=== PATIENT | male | born 1980 | race Caucasian/White ===

== ENCOUNTER 2017-01-31 15:37 | Emergency (ER) | payer SELFPAY ==
[~2017-01-31] VITALS: Ht 180.3 cm; Wt 74.4 kg
[2017-01-31 16:17] VITALS: BP 141/96
[2017-01-31] MEDS ORDERED: LIDOCAINE 1% 500 MG/50 ML VIAL INJ ONE (16:50)
--- NOTE | 2017-01-31 17:10 | NUR ---
PATIENT PRESENTS TO ED WITHC/O LEFT HAND INJURY x TODAY @ 1400. PT STATES HE WAS WORKING ON HIS CAR AND THE RADIATOR DROPPED IN HIS LT HANDS. DENIES N/V/D; SKIN IS PINK/WARM/DRY; AAOX4 WITH EVEN AND STEADY GAIT; LUNGS CLEAR BL; HR EVEN AND REGULAR; PT DENIES ANY FEVER, CP, SOB, OR COUGH AT THIS TIME; PATIENT STATES PAIN OF 8 /10 AT THIS TIME; PATIENT POSITIONED FOR COMFORT; HOB ELEVATED; BEDRAILS UP X2; BED DOWN. ER MD MADE AWARE OF PT STATUS.
[2017-01-31] MEDS ORDERED: NEOMYCIN/POLYMYXIN/BACITRACIN 0.9 GM/1 PKT TP ONE (18:07)
[2017-01-31 18:12] VITALS: BP 134/134
--- NOTE | 2017-01-31 18:12 | NUR ---
INSTRUCTED TO RETURN TO ER X2DAYS FOR WOUND CHECK WITH UNDERSTANDING
== END 2017-01-31 18:12 | disposition home or self-care (01) ==
LOC: MED 15:37
DX: S61.217A Laceration without foreign body of left little finger without damage to nail, initial encounter (principal); W23.0XXA Caught, crushed, jammed, or pinched between moving objects, initial encounter; Y93.89 Activity, other specified; Y92.89 Other specified places as the place of occurrence of the external cause; Y99.8 Other external cause status
CPT/HCPCS: 12002; 73130; 90471; 90715; 99284; J2001

== ENCOUNTER 2018-12-04 07:55 | Emergency (ER) | payer SELFPAY ==
[~2018-12-04] VITALS: Ht 180.3 cm; Wt 74.8 kg
[2018-12-04 08:04] VITALS: BP 153/97
--- NOTE | 2018-12-04 08:16 | NUR ---
computer support technician at bedside.
--- NOTE | 2018-12-04 08:22 | NUR ---
38 Y/O MALE C/O OF LEFT CHEST PAIN AND PRESSURE. SUDDEN ONSET DURING WORK. DENIES RECENT INJURY. NO PEDAL EDEMA. SKIN DRY, PINK, WARM TO TOUCH. NO RESPIRATORY DISTRESS NOTED AT THIS TIME. PLACED ON MONITOR.
--- NOTE | 2018-12-04 08:25 | NUR ---
Dr. Alfaro evaluating patient at bedside.
[2018-12-04] MEDS ORDERED: KETOROLAC 60 MG/2 ML VIAL IM ONE (08:35)
[2018-12-04 10:44] VITALS: BP 146/97
--- NOTE | 2018-12-04 10:45 | NUR ---
Patient discharged with v/s stable. Written and verbal after care instructions given and explained. Patient alert, oriented and verbalized understanding of instructions. Ambulatory with steady gait. All questions addressed prior to discharge. ID band removed. Patient advised to follow up with PMD. Rx of AZITRHOMYCIN given. Patient educated on indication of medication including possible reaction and side effects. Opportunity to ask questions provided and answered.
== END 2018-12-04 10:34 | disposition home or self-care (01) ==
LOC: MED 07:55
DX: J18.9 Pneumonia, unspecified organism (principal); Z87.891 Personal history of nicotine dependence
CPT/HCPCS: 71045; 93005; 96372; 99283; J1885; Q0092

== ENCOUNTER 2019-04-28 15:23 | Emergency (ER) | payer OTHER ==
[~2019-04-28] VITALS: Ht 167.6 cm; Wt 75.7 kg
[2019-04-28 15:30] VITALS: BP 146/97
--- NOTE | 2019-04-28 15:55 | NUR ---
PT PLACED IN LOBBY ; VSS STABLE
--- NOTE | 2019-04-28 17:05 | NUR ---
PT PLACED IN BED 1, AMBULATORY WITH STEADY GAIT.
[2019-04-28] MEDS ORDERED: LEVOFLOXACIN 500 MG TAB PO ONE (17:25)
[2019-04-28] MEDS ORDERED: cefTRIAXone 1,000 MG in LIDOCAINE MPF 1% 2.1 ML IM ONE (17:25)
[2019-04-28] MEDS ORDERED: NEOMYCIN/POLYMYXIN/BACITRACIN 0.9 GM/1 PKT TP ONE (17:28)
[2019-04-28] MEDS ORDERED: cefTRIAXone 1,000 MG VIAL ONE (17:28)
[2019-04-28] MEDS ORDERED: LIDOCAINE MPF 1% 5 ML ONE (17:29)
--- NOTE | 2019-04-28 17:43 | NUR ---
PT STATES, ANIMAL CONTROL ARRIVED ON SCENE OF INJURY---
[2019-04-28 19:09] VITALS: BP 146/97
--- NOTE | 2019-04-28 19:09 | NUR ---
Patient discharged with v/s stable. Written and verbal after care instructions given and explained. Patient alert, oriented and verbalized understanding of instructions. Ambulatory with steady gait. All questions addressed prior to discharge. ID band removed. Patient advised to follow up with PMD. Rx of MOTRIN, NORCO, AND AUGMENTIN given. Patient educated on indication of medication including possible reaction and side effects. Opportunity to ask questions provided and answered.
== END 2019-04-28 19:09 | disposition home or self-care (01) ==
LOC: MED 15:23
DX: S41.151A Open bite of right upper arm, initial encounter (principal); S81.851A Open bite, right lower leg, initial encounter; W54.0XXA Bitten by dog, initial encounter; Y93.89 Activity, other specified; Y92.89 Other specified places as the place of occurrence of the external cause; Y99.8 Other external cause status
CPT/HCPCS: 90471; 90715; 96372; 99283; J0696; J2001